=== PATIENT | female | born 1980 | race Caucasian/White ===

== ENCOUNTER → 2023-04-16 | Outpatient (CLI) | payer OTHER ==
--- NOTE | 2023-04-18 20:40 | CT ---
EXAMINATION TYPE: CT cervical spine wo con DATE OF EXAM: 04/16/2023 COMPARISON: HISTORY: Neck pain, disc degeneration x6yrs. No injury. CT DLP: 545.[address] of the cervical spine was performed with bone and soft tissue window settings submitted . Coronal and sagittal reconstruction is obtained. There is normal alignment and prevertebral soft tissues C2-3: Within normal limits C3-4: Within normal limits C4-5: Mild degenerative narrowing and disc bulging. Minimal effacement ventral thecal sac. No evidenc e for disc herniation. No evidence for central stenosis. Degenerative change cervical apophyseal join ts with right foraminal encroachment seen. C5-6: Moderate disc desiccation with moderate posterior disc bulge. Central stenosis is difficult to exclude. Further characterization with MRI is advised. Bilateral foraminal encroachment mild in degre e. C6-7: Mild degenerative disc space narrowing with posterior disc bulge. Mild effacement ventral theca l sac. No evidence for central stenosis. Foramina are patent bilaterally. C7-T1: Within normal limits IMPRESSION: 1. Degenerative disc disease as discussed. 2. Central stenosis suggested at C5-6. Consider further characterization with MRI. Foraminal encroach ment as noted above.
== END | disposition home or self-care (01) ==
LOC: RADCTMAIN 18:23
PROVIDERS: ATTEND Family Medicine
DX: M50.321 Other cervical disc degeneration at C4-C5 level (principal); M47.812 Spondylosis without myelopathy or radiculopathy, cervical region
CPT/HCPCS: 72125